=== PATIENT | male | born 1990 | race Caucasian/White ===

== ENCOUNTER 2018-04-17 15:13 | Emergency (ER) | payer OTHER ==
[2018-04-17 15:27] VITALS: BP 133/89; PULSE 128; RESP 18; TEMP 98.1
--- NOTE | 2018-04-17 16:18 | ED ---
Extremity Problem HPI - General Chief complaint: Extremity Problem,Nontraumatic Stated complaint: Infection in finger Time Seen by Provider: 04/17/18 15:39 Source: patient Mode of arrival: ambulatory Limitations: no limitations - History of Present Illness Initial comments: 28-year-old male presents emergency Department from [facility] for left hand index finger infection. Patient states started a few days ago was placed on Bactrim with no relief yet. Patient states he did soak it a couple times. Reports no fevers or chills. Denies any chest pain or shortness breath denies any decreased range of motion of his digit. Denies any pain with range of motion - Related Data Allergies Allergy/AdvReac Type Severity Reaction Status Date / Time No Known Allergies Allergy Verified 04/17/18 15:27 Review of Systems ROS Statement: Those systems with pertinent positive or pertinent negative responses have been documented in the HPI. ROS Other: All systems not noted in ROS Statement are negative. Past Medical History Additional Past Medical History / Comment(s): Hepatitis C History of Any Multi-Drug Resistant Organisms: None Reported Past Surgical History: No Surgical Hx Reported Past Psychological History: Anxiety, Depression Smoking Status: Current every day smoker Past Alcohol Use History: None Reported Past Drug Use History: Heroin General Exam Limitations: no limitations General appearance: alert, in no apparent distress Head exam: Present: atraumatic, normocephalic, normal inspection Neck exam: Present: normal inspection. Absent: tenderness, meningismus, lymphadenopathy Respiratory exam: Present: normal lung sounds bilaterally. Absent: respiratory distress, wheezes, rales, rhonchi, stridor Cardiovascular Exam: Present: regular rate (Patient was tachycardic on triage secondary to anxiety. Patient has regular rate and rhythm on exam), normal rhythm, normal heart sounds. Absent: systolic murmur, diastolic murmur, rubs, gallop, clicks Extremities exam: Present: other (Left hand index finger there is a large paronychia noted, full range of motion, neurovascular intact) Course Vital Signs 04/17/18 15:24 Temperature 98.1 F Pulse Rate 128 H Respiratory 18 Rate Blood Pressure 133/89 O2 Sat by Pulse 98 Oximetry Procedures - Procedures Initial comment: Left hand index finger paronychia, #11 blade was used to open the wound patient tolerated well Medical Decision Making - Medical Decision Making 28-year-old male presented for left hand index finger infection. He has a known paronychia. This was opened using a #11 blade. Patient tolerated well he 'll be given Keflex, continue warm compresses and soaks. Disposition Clinical Impression: Paronychia Disposition: HOME SELF-CARE Condition: Stable Instructions: Paronychia (ED) Additional Instructions: Continue Bactrim and start Keflex as directed. Continue warm soaks. Please return to the Emergency Department if symptoms worsen or any other concerns. Is patient prescribed a controlled substance at d/c from ED?: No Referrals: Nonstaff,Physician [Primary Care Provider] - 1-2 days Time of Disposition: 16:17
== END 2018-04-17 16:22 | disposition home or self-care (01) ==
LOC: EC 15:13
DX: L03.012 Cellulitis of left finger (principal); F17.200 Nicotine dependence, unspecified, uncomplicated
CPT/HCPCS: 99283